=== PATIENT | female | born 1970 | race African-American/Black ===

== ENCOUNTER 2017-10-25 11:25 | Emergency (ER) | payer SELFPAY | END 2017-10-25 12:52 | disposition home or self-care (01) | LOC: ERS 11:25 | DX: J30.9 Allergic rhinitis, unspecified (principal); R51 Headache | CPT/HCPCS: 99283 ==

== ENCOUNTER 2018-02-27 21:35 | Emergency (ER) | payer SELFPAY ==
[2018-02-27] MEDS ORDERED: Dexamethasone 4 MG TAB ONE (23:13)
== END 2018-02-27 23:36 | disposition home or self-care (01) ==
LOC: ERS 21:35
DX: R09.81 Nasal congestion (principal)
CPT/HCPCS: 99283; J8540

== ENCOUNTER 2018-11-05 22:08 | Emergency (ER) | payer BC, SELFPAY | END 2018-11-05 23:42 | disposition home or self-care (01) | LOC: ERS 22:08 | DX: J01.90 Acute sinusitis, unspecified (principal) | CPT/HCPCS: 87804; 99283 ==

== ENCOUNTER 2020-07-01 14:04 | Emergency (ER) | payer BC ==
[2020-07-01] MEDS ORDERED: Naproxen 500 MG TAB ONE (16:03)
== END 2020-07-01 16:13 | disposition home or self-care (01) ==
LOC: ERS 14:04
DX: M25.532 Pain in left wrist (principal)
CPT/HCPCS: 29125

== ENCOUNTER 2020-10-07 17:31 | Emergency (ER) | payer SELFPAY | END 2020-10-07 17:58 | disposition home or self-care (01) | LOC: ERS 17:31 | DX: J01.90 Acute sinusitis, unspecified (principal); H92.01 Otalgia, right ear | CPT/HCPCS: 99283 ==